=== PATIENT | female | born 1960 | race Caucasian/White ===

== ENCOUNTER 2018-11-02 02:09 | Outpatient (CLI) | payer BC, SELFPAY ==
--- NOTE | 2018-11-07 09:26 | HOLTER_ITS ---
DATE OF DICTATION: November 07, 2018 HOLTER MONITOR REPORT STUDY INDICATION: Arrhythmias. REQUESTING PROVIDER: Benito Dwyer M.D. FINDINGS: The patient was monitored for 2 days and 28 minutes. The baseline rhythm was sinus rhythm. Average heart rate 78 bpm, range 54-117 bpm. 483 PVC's, no VT. 118 PAC's, 10 atrial runs, longest 20 beats, fastest 164 bpm. No pauses greater than 3 seconds. No high-degree heart block. 11 patient events. Five events correlated with PVC's, all other events did not correlate with arrhythmias. FINAL INTERPRETATION: Rare PAC's and bursts of supraventricular tachycardia, asymptomatic. Rare PVC's, at times symptomatic.
== END 2018-11-02 02:29 ==
PROVIDERS: PCP Family Medicine; Visit Provider Family Medicine
DX: I49.9 Cardiac arrhythmia, unspecified (principal); I49.1 Atrial premature depolarization; I47.1 Supraventricular tachycardia
CPT/HCPCS: 93225

== ENCOUNTER 2018-11-04 14:42 | Outpatient (CLI) | payer BC, SELFPAY | END 2018-11-04 15:02 | LOC: NCHCN 14:44 → RT 14:45 | PROVIDERS: PCP Family Medicine; Visit Provider Family Medicine | DX: I49.9 Cardiac arrhythmia, unspecified (principal); I49.1 Atrial premature depolarization; I47.1 Supraventricular tachycardia | CPT/HCPCS: 93226 ==

== ENCOUNTER 2018-11-23 02:13 | Outpatient (CLI) | payer BC, SELFPAY ==
[2018-11-23 10:56] LABS: HGB 16.3 g/dL (12.0-15.5); Mean Corpuscular Hemoglobin 30.6 pg (27.0-33.0); Mean Corpuscular Volume 90.2 fL (80-95); Mean Platelet Volume 10.7 fL (8.0-11.0); Platelet Count 228 x1000/uL (130-400); RBC 5.32 m/cumm (4.00-5.20); RBC Distribution Width 13.3 % (11.7-14.6); White Blood Cell Count 9.36 k/cumm (4.4-10.8)
[2018-11-23 11:21] LABS: ALT 36 U/L (12-78); AST 27 U/L (15-37); Albumin 4.1 g/dL (3.4-5.0); Alkaline Phosphatase 70 U/L (46-116); Anion Gap 7.4 mmol/L (3-11); BUN 14 mg/dL (7-18); Bilirubin, Total 0.6 mg/dL (0.2-1.0); CO2 29.6 mmol/L (21.0-32.0); CREATININE 0.71 mg/dL (0.55-1.02); Calcium 9.7 mg/dL (8.5-10.1); Chloride 103 mmol/L (98-107); Glucose 84 mg/dL (70-100); Magnesium 2.1 mg/dL (1.8-2.4); Potassium 4.4 mmol/L (3.5-5.1); Sodium 140 mmol/L (136-145); TSH (W/Ref FT4) 1.76 uIU/mL (0.358-3.74)
[2018-11-23 11:49] LABS: Cholesterol 212 mg/dL (50-200); HDL Cholesterol 82 mg/dL (40-60); LDL CHOLESTEROL 107 mg/dL (<100); Triglyceride 85 mg/dL (30-150)
== END 2018-11-23 02:33 ==
LOC: LBO 02:13 → LOS 08:42
PROVIDERS: PCP Family Medicine; Visit Provider Family Medicine
DX: I49.9 Cardiac arrhythmia, unspecified (principal); Z00.00 Encounter for general adult medical examination without abnormal findings
CPT/HCPCS: 36415; 80053; 80061; 83721; 85027; 83735; 84443

== ENCOUNTER 2019-01-16 00:15 | Outpatient (CLI) | payer BC, SELFPAY ==
--- NOTE | 2019-01-16 11:00 | DI.MAMMO_ITS ---
SYMPTOM/DIAGNOSIS: SCREENING, Z12.31, ENCOUNTER FOR ANNUAL EXAM,Z00.00 MAMMOGRAMS: Mammograms were interpreted according to the usual protocol including computer analysis with CAD system, tomosynthesis and C view imaging. The breasts are of moderate density with fairly symmetrical distribution of fibroglandular tissue. The patient has had bilateral previous breast biopsies with small biopsy clip in the upper outer quadrant of the left breast. No new mass or clumped microcalcification is seen. No change in comparison with previous examinations including 10/2017. CONCLUSION: No specific evidence of malignancy at this time. Routine screening examinations are suggested at yearly intervals due to the family history of breast carcinoma. Category 1. Breast density, category B. MQSA ASSESSMENT OF FINDINGS: Negative. Category 1. Patient will receive a letter notifying them of these results. BI-RADS category B. There are scattered areas of fibroglandular density.
== END 2019-01-16 00:35 ==
PROVIDERS: PCP Family Medicine; Visit Provider Family Medicine
DX: Z80.3 Family history of malignant neoplasm of breast
CPT/HCPCS: 77063; 77067

== ENCOUNTER 2020-01-16 12:29 | Outpatient (CLI) | payer OTHER, SELFPAY ==
[2020-01-17 12:22] LABS: COVID-19 RT-PCR UVMMC Result Negative (Negative)
== END 2020-01-16 12:49 ==
PROVIDERS: PCP Family Medicine; Visit Provider Family Medicine
DX: Z20.828 Contact with and (suspected) exposure to other viral communicable diseases (principal)
CPT/HCPCS: U0003

== ENCOUNTER 2021-08-18 03:09 | Outpatient (CLI) | payer OTHER, SELFPAY ==
[2021-08-18 10:21] LABS: Source Nasal/Nares
[2021-08-18 19:57] LABS: COVID-19 PCR Negative (Negative)
== END 2021-08-18 03:10 | disposition home or self-care (01) ==
LOC: LBO 03:10
PROVIDERS: PCP Family Medicine; Visit Provider Obstetrics & Gynecology Gynecology
DX: Z20.822 Contact with and (suspected) exposure to COVID-19 (principal); Z01.818 Encounter for other preprocedural examination
CPT/HCPCS: 87635

== ENCOUNTER 2021-08-18 03:48 | Outpatient (CLI) | payer OTHER, SELFPAY ==
[2021-08-18 08:46] LABS: HCT 46.7 % (36.0-46.0); HGB 15.5 g/dL (11.2-15.7); MCH 29.9 pg (27.0-33.0); MCHC 33.2 % (32.0-36.0); MPV 9.7 fL (8.0-11.0); Platelet Count 228 10^3/uL (130-400); RBC 5.19 10^6/uL (3.93-5.22); RDW 12.5 % (11.7-14.6); RDW-SD 41.4 fL; WBC 7.27 10^3/uL (4.4-10.8)
== END 2021-08-18 03:49 | disposition home or self-care (01) ==
LOC: LBO 03:49
PROVIDERS: PCP Family Medicine; Visit Provider Obstetrics & Gynecology Gynecology
DX: N81.11 Cystocele, midline (principal); Z01.818 Encounter for other preprocedural examination; Z01.812 Encounter for preprocedural laboratory examination
CPT/HCPCS: 36415; 85027; 86850; 86900; 86901; 85014; 85018

== ENCOUNTER 2021-08-20 08:03 | Day surgery (SDC) | payer OTHER, SELFPAY ==
--- NOTE | 2021-08-19 14:44 | NUR.NOTE ---
Per pt. labs it was noted that per the order Lytes were supposed to have been drawn with the CBC, Type and screen, and H&H. This was not drawn, Dr. Villavicencio informed, stated we did not have to have Lytes additionally drawn on day of surgery. Nursing Note:
[2021-08-20] VITALS (9 sets, daily range): BP systolic 124–156; BP diastolic 72–87; PULSE 61–69; RESP 14–22; TEMP 36.5–36.8; O2SAT 96–100; BMI 24.6
[2021-08-20] MEDS: Lactated Ringers 1,000 ML 125 ML IV (09:02)
--- NOTE | 2021-08-20 11:40 | ANES.PREOP_ITS ---
General Info Date of Service Date Performed: 08/20/21 Height: 5 ft 1 in Weight: 59.1 kg Body Mass Index (BMI): 24.6 Surgical Procedure: Operation Date: 08/20/21 09:55 Proposed Procedures Side Surgeon p Anterior Repair Geri De Paz MD Meds Allergies and Home Medications Allergies Allergy/AdvReac Type Severity Reaction Status Date / Time erythromycin base Allergy Severe Swelling Unverified 08/20/21 08:29 banana AdvReac Severe heart burn Unverified 08/20/21 08:29 lactose AdvReac Severe Flu like Unverified 08/20/21 08:29 symptoms avocado AdvReac Intermediate stomach Unverified 08/20/21 08:29 upset egg AdvReac Intermediate Flu like Unverified 08/20/21 08:29 symptoms latex AdvReac Intermediate Redness, Unverified 08/20/21 08:29 rash levofloxacin AdvReac Mild Joint pain. Verified 08/20/21 08:29 broccoli AdvReac Severe doesnt Uncoded 08/20/21 08:29 digest Red Sauce AdvReac Intermediate Flu like Uncoded 08/20/21 08:29 symptoms Home Medication Medication Instructions Recorded loratadine [Claritin] 10 mg PO DAILY PRN tab-cap 04/27/13 aspirin 2 tab PO PRN 04/06/14 ibuprofen 2 tab PO PRN PRN 03/28/16 ccbpzawf-zzk-iahj-FA-lutein 1 tab PO DAILY 08/19/21 [Multivitamin Women 50 Plus] Current Visit Medications: Current Medications Generic Name Dose Route Start Last Admin Trade Name Freq PRN Reason Stop Dose Admin Ringer's Solution 1,000 mls @ 125 mls/hr 08/20/21 06:00 08/20/21 09:02 IV 09/08/21 23:59 125 mls/hr INFUSION MARGE Administration IV Miscellaneous Supplies 1 each 08/20/21 06:00 Iv Access IV 09/08/21 23:59 DIRECTED MARGE Sodium Chloride 0 ml 08/20/21 06:00 Normal Saline Flush 10 Ml Syr IV 09/08/21 23:59 PRN PRN Sodium Chloride 0 ml 08/20/21 06:00 Normal Saline 10 Ml Vial IJ 09/08/21 23:59 DIRECTED PRN Sterile Water 0 ml 08/20/21 06:00 Water,Injection,Sterile 10 Ml Vial IJ 09/08/21 23:59 DIRECTED PRN PFSH Active Problems Active Problems: Problem Status Onset Code Preop examination Z01.818 Cystocele Family history of breast cancer in mother Z80.3 Diverticular disease 08/22/13 K57.90 Left flank pain 04/09/16 R10.9 Left ureteral stone 04/21/16 N20.1 Abnormal mammography 08/24/13 R92.8 Polyp of colon 08/22/13 K63.5 Smoker 04/30/14 F17.200 Medical History Medical History Diverticulosis Dyspareunia in female secondary to atrophic vaginal changes. Hx of left flank pain with assoc hydronephrosis. 04/09/16 resolved. Pelvic mass (~03/2016) initially diagnosed as R ovarian mass. at time of laparotomy large degenerating cervical myoma. Nl uterus and adnexa. Pelvic mass (04/09/16) 10x9x5.6cm. Benign fibroid. Tobacco use Medical History Comments:: Sister had some jumpy legs during last surgery. Unsure what it was. Surgical History Surgical History Abdominal hysterectomy (06/18/16) with BSO. Finding of extensive collection of cervical myomas Biopsy of breast 04/06/14; LEFT section x2. Colonoscopy - MAC (08/22/13) Rotator Cuff Repair RIGHT Tobacco Smoking/Tobacco Use Status: Current every day Tobacco Type: cigarettes Smoking cigarettes per day: 8 Years smoked: 50 Alcohol Alcohol Intake: never Substance Use Substance use: Never Substance use type: does not use Prental History History 2 Para Hx # Term Pregnancies 1 Multiple births Hx # Pregnancies 1 Ectopic pregnancies AB induced Hx Number of Living Children AB spontaneous Vital Signs and Lab Results Vital Signs Most Recent Vital Signs in EMR: Most Recent Vital Signs Temp Pulse Resp BP Pulse Ox 36.8 C 69 20 145/87 H 100 08/20/21 08:16 08/20/21 08:16 08/20/21 08:16 08/20/21 08:16 08/20/21 08:16 Lab Results Blood Type / Crossmatch: Patient ABO/Rh O Negative 08/18/21 Antibody Screen NEGATIVE 08/18/21 Complete Blood Count: White Blood Count 7.27 10^3/uL (4.4-10.8) 08/18/21 08:37 08/18/21 Red Blood Count 5.19 10^6/uL (3.93-5.22) 08/18/21 08:37 08/18/21 Hemoglobin 15.5 g/dL (11.2-15.7) 08/18/21 08:37 08/18/21 Hematocrit 46.7 % (36.0-46.0) H 08/18/21 08:37 08/18/21 Platelet Count 228 10^3/uL (130-400) 08/18/21 08:37 08/18/21 Complete Metabolic Panel: No Data to Display Liver Function Panel: No Data to Display Coagulation Panel: No Data to Display Cardiac Panel: No Data to Display Arterial Blood Gas: No Data to Display Venous Blood Gas: No Data to Display Pancreas Panel: No Data to Display Thyroid Panel: No Data to Display Infectious Disease: Coronavirus (COVID-19)(PCR) Negative (Negative) 08/18/21 08:41 08/18/21 Coronavirus 2019 Source Nasal/Nares 08/18/21 08:41 08/18/21 Blood Cultures: No Data to Display Toxicology Panel: No Data to Display Imaging and Studies Imaging and Studies Study information below may be from another EMR and interpreted by another provider. Please see original notes in EMR for more complete details. EKG Summary: Reviewed Stress Test Summary: Stress test from [facility] in 2019 reviewed Anesthesia Assessment and Plan Anesthesia History Personal History: No History of Anesthesia Complications Family History: No Family History of Anesthesia Complications Exercise Tolerance Exercise Tolerance: Metabolic Equivalents>4 Pertinent Negatives Pertinent Negatives: No Symptoms of GERD Cardiac & Pulmonary Exam Cardiac Exam: Normal S1/S2 Heart Sounds (Reports occaisional limited fast heartbeats) Pulmonary Exam: Clear Bilateral Breath Sounds Implantable Cardiac Device Does patient have a Pacemaker or an ICD?: No Airway Exam Known Difficult Airway: No Mallampati Class: 2 Mouth Opening: Normal (> 3cm) Thyromental Distance: Greater than 3 cm Neck Range of Motion: Full ROM Neck Circumference: Normal Teeth Condition: Removable Dentures/Plates Upper and Removable Dentures/Plates Lower ASA Classification ASA Score: ASA 2 Emergency Case?: No NPO Status NPO Status: NPO Clears >2 hours, Solids >8 hours Anesthesia Plan Resuscitation Status: Full Code Anesthesia Technique: General Anesthesia Airway Planned: Natural Airway Monitors Used: Standard Monitors
--- NOTE | 2021-08-20 13:32 | W.PM.DSUDISC ---
Discharge Plan Disposition Patient Disposition: HOME Condition: Fair Discharge Details Attending Provider: Geri De Paz Primary Care Provider: Yesica Payne Home Meds and New Rx's Prescriptions: No Action loratadine [Claritin] 10 MG tablet 10 mg PO DAILY PRN RF: 0 aspirin 325 MG tablet 2 tab PO PRN RF: 0 ibuprofen 200 MG capsule 2 tab PO PRN PRNRF: 0 Multivitamin Women 50 Plus 8 mg iron-400 mcg-300 mcg Tablet 1 tab PO DAILY RF: 0 Discharge Instructions Additional Instructions: You may take Percocet 5/325mg one tablet every 6 hours in addition to ibuprofen 600 mg every 6 hours. You may take Tylenol for pain when you are not taking the Percocet since Percocet has Tylenol in it. You can expect some bloody discharge from your vagina. You may wear a pad do not put any tampons inside the vagina. The bleeding should stop in 2 to 3 days. Try to empty your bladder every 4 hours for the first 24 hours. If you are unable to void please call and ask to speak to the on-call [employer] [employer] provider. Stand Alone Forms: DSU Post Gynecology Surgery Activity:: No lifting over 10 pounds until you see Dr. De Paz in 2 weeks Diet:: As Tolerated Discharge Orders Discharge Orders: Discharge Order (Routine); Ordered 08/20/21 Ordered By: Geri De Paz DS: Diagnosis Discharge Diagnosis (1) Cystocele: Status: Acute (2) History of anterior colporrhaphy: Status: Acute
[2021-08-20] MEDS: Ketorolac 30 MG/ML VIAL IVP (13:54)
[2021-08-20] MEDS: fentaNYL 100 MCG/2 ML VIAL IVP (14:01)
--- NOTE | 2021-08-20 14:31 | ROE_ITS ---
Date of service: 08/20/21 Time of Service: 14:31 Operative Note Operative Note DATE OF PROCEDURE: 08/20/21 PRE-OP DIAGNOSIS: cystocele POST-OP DIAGNOSIS: same PROCEDURE: anterior colporraphy SURGEON: Geri De Paz ASSISTING SURGEON: Ai Gómez ANESTHESIA TYPE: General LMA/ETT Refer to Anesthesia Record ESTIMATED BLOOD LOSS: 10 PATHOLOGY: none sent COMPLICATIONS: None Patient was transported to: PACU Patient's condition: stable Indications: 60yo female with a symptomatic stage 3 cystocele who requests definitive treatment Findings: cystocele that extends to introitus with Valsalva in the doral lithotomy position. Vaginal cuff well suspended. No rectocele. No enterocele. Procedure Description: The patient was taken to the operating room where she was placed in the dorsal supine position and general anesthesia was administered without difficulty. 1 gm of Ancef was administered upon arrival in the OR. She was then placed in the dorsal lithotomy position in yellowfin stirrups in a neurologically neutral position. The patient was then prepped, and draped in the usual sterile fashion. A surgical timeout was performed. A bladder catheter is placed to gravity drainage. A weighted speculum was placed within the vagina, allowing adequate visualization of the anterior vaginal wall. An Allis clamp is placed 1 cm proximal to the urethra along the midline of the anterior vagina and two more Allis clamps on either side of the vaginal cuff. The anterior vaginal was injected with approximately 10 cc of 1% lidocaine with epinephrine. A transverse incision is made between the two Allis clamps on the vaginal cuff. Metzenbaum scissors are then used to dissect the vaginal mucosa off the underlying tissues anteriorly. Once adequate mobility of the vaginal mucosa was achieved, a small vertical incision was made with Metzenbaum scissors in the midline, perpendicular to the initial incision. The scissors were placed beneath the vaginal mucosa advanced with gentle pressure with care taken to spread the overlying mucosa The path of the scissors was incised, extending the vertical incision to the level of the Allis clamp proximal to the urethra. Allis clamps were placed on the mucosal edges to assist in retraction while further dissection of the vaginal mucosa from the underlying tissues was performed bilaterally. Using a combination of blunt technique and Metzenbaum scissors the mucosa was dissected off the entirety of the bladder. Plication of the vaginal muscularis and adventitia was then performed using 0- Vicryl [id number] sutures. with the initial sutures placed laterally in the field of dissection. The 0-Vicryl sutures were tied in the midline effectively plicating the defect. Redundant vaginal mucosa was trimmed with curved Santos scissors. The vaginal incision is closedin a vertical fashion with a running suture of 0 Vicryl. The suture line was inspected noted be hemostatic. Garcia catheter was removed patient was placed in the dorsal supine position, awakened, extubated and transported to recovery area in stable condition. All sponge lap and needle counts correct x2.
--- NOTE | 2021-08-20 14:44 | W.ANESPOSTOP ---
Postoperative Evaluation Date, Time and Location Date Performed: 08/20/21 Time Performed: 14:45 Patient Location: Day Surgery Unit Vital Signs Most Recent Imported Vital Signs: Most Recent Vital Signs Temp Pulse Resp BP Pulse Ox 36.5 C 61 16 136/83 99 08/20/21 14:28 08/20/21 14:28 08/20/21 14:28 08/20/21 14:28 08/20/21 14:28 Pain Score Most Recent Pain Score: Most Recent Pain Score Pain Level 3 08/20/21 14:28 Assessment Mental Status: Awake (Alert & Oriented to Patient Baseline) Airway and Respiratory Function: Patent airway with normal (patient baseline) respiratory exam Cardiovascular Function: Hemodynamically Stable Hydration Status: Adequately Hydrated Nausea & Vomiting: No Nausea or Vomiting Pain: Pain is tolerable per patient (Reported some discomfort from angle of left jaw from my holding of her airway. We discussed the appropriate course of that discomfort. She reports it is much better with her teeth in. ) Peripheral Nerve Block: Patient did not receive a nerve block
== END 2021-08-20 15:40 | disposition home or self-care (01) ==
PROVIDERS: PCP Family Medicine; Visit Provider Obstetrics & Gynecology Gynecology
PROC: (CPT 57260; principal; 2021-08-20 09:45)
DX: N81.11 Cystocele, midline (principal); F17.210 Nicotine dependence, cigarettes, uncomplicated
CPT/HCPCS: 57240; J0690; J1100; J1885; J2001; J2405; J3010

== ENCOUNTER 2021-10-28 12:17 | Emergency (ER) | payer OTHER, SELFPAY ==
--- NOTE | 2021-10-28 12:15 | RT.EKG_ITS ---
APPROVED REPORT Exam: Resting ECG Reason for Exam: dizzy Patient Location: E HR:77 bpm ECG Measurements Heart Rate 77 AXIS MD 139 P 55 QRSd 83 QRS -23 QT 372 T 63 QTc 422 Conclusion Sinus rhythm...normal P axis, V-rate 60- 99 Inferior infarct, old...Q >35mS, II III aVF Anterior infarct, old...Q >40mS, abnormal ST-T, V2-V5. Sinus. No STEMI. I have reviewed and interpreted ECG and agree with software generated interpretation.
[2021-10-28 12:27] VITALS: BP 206/97; PULSE 79; RESP 18; TEMP 36.7; O2SAT 99
--- NOTE | 2021-10-28 13:00 | DI.RAD_ITS ---
Exam(s) XR PORTABLE CHEST AP EXAM: XR PORTABLE CHEST AP CLINICAL HISTORY: syncope. TECHNIQUE: 2D digital imaging was performed. COMPARISON: No exams were available for comparison FINDINGS: Single AP portable view. Heart size is upper normal. The mediastinum is not widened. Left lung is clear. There is a small density in the right cardiophrenic angle, possibly just a vesse l or the IVC shadow. Cannot exclude small cardiophrenic cyst. Recommend nonportable PA and lateral views when clinically possible. IMPRESSION: As above. Recommend nonportable PA and lateral views when clinically possible. DATA REPOSITORY: RADIATION DOSE DELIVERED: All CT scans at this facility use at least one of these dose optimization techniques: automated exposure control; mA and/or kV adjustment per patient size (includes targeted e xams where dose is matched to clinical indication); or iterative reconstruction.
[2021-10-28 13:02] VITALS: BP 191/99; PULSE 72; O2SAT 99
[2021-10-28] MEDS: hydroCHLOROthiazide 25 MG TAB PO (13:27)
[2021-10-28 13:30] LABS: Abs Immature Grans 0.03 10^3/uL (0.0-0.06); Absolute Basophil Count 0.05 10^3/uL (0.0-0.2); Absolute Eosinophil Count 0.45 10^3/uL (0.0-0.7); Absolute Lymphocyte Count 2.57 10^3/uL (1.2-3.4); Absolute Neutrophil Count 4.44 10^3/uL (1.2-6.7); Basophils % 0.6; Eosinophils % 5.6; HCT 45.1 % (36.0-46.0); HGB 14.9 g/dL (11.2-15.7); Immature Grans % 0.4; MCH 29.6 pg (27.0-33.0); MCV 90 fL (80-95); MPV 10.3 fL (8.0-11.0); Monocytes % 6.2; Neutrophils % 55.2; Platelet Count 236 10^3/uL (130-400); RBC 5.04 10^6/uL (3.93-5.22); RDW 12.4 % (11.7-14.6); RDW-SD 40.9 fL; WBC 8.04 10^3/uL (4.4-10.8)
--- NOTE | 2021-10-28 13:41 | W.ED.GENAD ---
Discharge Plan Disposition Patient Disposition: HOME Condition: Stable Discharge Details Clinical Impression: Pre-syncope Primary Care Provider: Yesica Payne ED Provider: Callie Lau Home Meds and New Rx's Prescriptions: Continued hydrochlorothiazide 25 mg tablet 25 mg PO DAILY Qty: 30 2RF nystatin 100,000 unit/gram powder 1 applic topical BID Qty: 30 0RF ciclopirox 8 % solution 1 applic topical QHS Qty: 6.6 3RF loratadine [Claritin] 10 MG tablet 10 mg PO DAILY PRN 0RF aspirin 325 MG tablet 2 tab PO PRN 0RF ibuprofen 200 MG capsule 2 tab PO PRN PRN0RF Multivitamin Women 50 Plus 8 mg iron-400 mcg-300 mcg Tablet 1 tab PO DAILY 0RF Discharge Instructions Instructions: Near Syncope (ED) Additional Instructions: Please follow-up with your primary care physician Recommend outpatient echocardiogram of your heart Continue to take your hydrochlorothiazide Wear your Holter monitor Return earlier should you have new or worsening complaints Referrals: Yesica Payne MD [Primary Care Provider] - Discharge Data Discharge Date/Time-TO BE ENTERED AT DEPARTURE: 10/28/21 15:57 Medical Decision Making Patient's diagnostic labs are reassuring EKG does not show acute abnormality and she was observed on telemetry for an extended period of time without dysrhythmia [place] syndope rule indicates patient is low risk for discharge home She is placed on a Holter monitor She is discharged home to the care of her friend in stable condition Her orthostatics are negative, her EKG and 2 troponins are negative for acute abnormality She is encouraged to follow-up with her PCP tomorrow and to return earlier should she have new or worsening complaints 1650: Joey Luevano PA-C My name populated on this chart in error. This patient was seen by my colleague LISA Lau and I had no interaction with the patient or involvement in her medical care. Medical Records Medical records reviewed: Yes I reviewed the patient's medical records. Lab Data Lab results reviewed: Yes I reviewed the patient's lab results. ECG Data Prior ECG tracings: available for review HPI General Date/Time Provider Initiated Documentation: 10/28/21 12:54. HPI Narrative: This 60-year-old female presents with a report of presyncope. She states she was standing and when she had tunnel vision like she might pass out. She states this lasted for several seconds she took some deep breaths and it resolved only to recur again several seconds later. She denies complete loss of consciousness. She has some palpitations after the event. She denies any chest pain. She denies any fever or chills. She felt well prior to onset. She has been standing for an extended period of time. She was recently started on hydrochlorothiazide 3 weeks ago. She forgot to take her dose today reportedly. She denies any calf pain or swelling. She is 8 weeks status post bladder sling. Related Data Home Medications Medication Instructions Recorded Confirmed loratadine 10 mg tablet (Claritin) 10 mg PO DAILY PRN tab-cap 04/27/13 10/28/21 aspirin 325 mg tablet 2 tab PO PRN 04/06/14 10/28/21 ibuprofen 200 mg capsule 2 tab PO PRN PRN 03/28/16 10/28/21 multivit with 1 tab PO DAILY 08/19/21 10/28/21 edxeshhj-vgtn-RG-lutein 8 mg iron-400 mcg-300 mcg tablet (Multivitamin Women 50 Plus) ciclopirox 8 % topical solution 1 applic TOPICAL QHS #6.6 ml 10/08/21 10/28/21 hydrochlorothiazide 25 mg tablet 25 mg PO DAILY #30 tab 10/08/21 10/28/21 nystatin 100,000 unit/gram topical 1 applic TOPICAL BID #30 g 10/08/21 10/28/21 powder Previous Rx's Medication Instructions Recorded ciclopirox 8 % topical solution 1 applic TOPICAL QHS #6.6 ml 10/08/21 hydrochlorothiazide 25 mg tablet 25 mg PO DAILY #30 tab 10/08/21 nystatin 100,000 unit/gram topical 1 applic TOPICAL BID #30 g 10/08/21 powder Allergies Allergy/AdvReac Type Severity Reaction Status Date / Time erythromycin base Allergy Severe Swelling Unverified 10/28/21 12:31 banana AdvReac Severe heart burn Unverified 10/28/21 12:31 lactose AdvReac Severe Flu like Unverified 10/28/21 12:31 symptoms avocado AdvReac Intermediate stomach Unverified 10/28/21 12:31 upset egg AdvReac Intermediate Flu like Unverified 10/28/21 12:31 symptoms latex AdvReac Intermediate Redness, Unverified 10/28/21 12:31 rash levofloxacin AdvReac Mild Joint pain. Verified 10/28/21 12:31 broccoli AdvReac Severe doesnt Uncoded 10/28/21 12:31 digest Red Sauce AdvReac Intermediate Flu like Uncoded 10/28/21 12:31 symptoms General Stated Complaint: Dizzy/Sync TERRY: 3 Review of Systems All systems reviewed & are unremarkable except as noted in HPI and below PFSH All Active Problems (Updated 10/28/21 @ 15:31 by LISA Harding) Pre-syncope (Acute) Family history of aneurysm of blood vessel of brain (Acute) Essential hypertension (Acute) Tobacco use (Acute) Medical History (Updated 10/28/21 @ 15:31 by LISA Harding) Cystocele Anterior colporrhaphy to 2021. Diverticulosis Dyspareunia in female secondary to atrophic vaginal changes. Family history of breast cancer in mother Pelvic mass (~03/2016) initially diagnosed as R ovarian mass. at time of laparotomy large degenerating cervical myoma. Nl uterus and adnexa. Surgical History (Updated 10/08/21 @ 15:22 by Yesica Payne MD) History of anterior colporrhaphy (08/2021) S/P SHARLA-BSO (2015) Finding of extensive collection of cervical myomas Status post breast biopsy (~2013) left Status post rotator cuff repair right Family History (Updated 10/10/21 @ 11:18 by Quiana López) Mother , 78 Breast cancer Heart disease Stroke Lung cancer Cancer of spine Father , 49 Cancer Maternal Grandfather , 68 Alcohol abuse Heart disease Paternal Grandfather , 80 Alcohol abuse Heart disease Maternal Grandmother , 30 Diabetes Alcohol abuse Paternal Grandmother , 98 Heart disease Sister Depression Sister Alcohol abuse Depression Substance abuse Brother No problems noted. Son Depression Daughter No problems noted. 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 Pets and animals: Yes Pets and animals: dog(s), horse(s) and other Details: chickens Sexually active: No Current gender identity: female What is your relationship status?: How often do you talk on the phone with friends or family?: three or more times per week How often do you get together with friends or relatives?: never How often do you attend hinduism or restorationism services?: 1-3 times per year Do you belong to any clubs or organized social groups?: no Panel score (0-1 are the most socially isolated patients): 2 Duration: < 15 minutes/day Chaparrita/Tenriism: Sabianist Special chaparrita needs: No Seatbelt use: always Helmet use: Yes Helmet use: sometimes Drive intox or ride w/intox public transit trolley driver: No Do you feel safe at home: Yes Do you feel safe in your relationship?: Yes Additional Social history: Daughter Gloria with ADHD, adopted. Enjoys gardening, working. History History 2 Para Hx # Term Pregnancies 1 Multiple births Hx # Pregnancies 1 Ectopic pregnancies AB induced Hx Number of Living Children AB spontaneous Exam Const General: cooperative, comfortable and no acute distress Orientation: alert and oriented x3 Eyes Pupils: PERRL EOM: EOM intact bilaterally Neck Other: no carotid bruit, no midline tenderness Resp Effort & Inspection: normal respiratory effort Auscultation: clear to auscultation bilaterally Cardio Rate: regular rate Rhythm: regular rhythm GI Other: non-tender abdominal exam, no abdominal bruit or pulsatile mass Skin General skin exam: no rashes or lesions noted Lesions: no lesions Neuro General: patient alert and patient oriented x3 Cranial Nerves: CN's II-XI intact bilaterally and tongue midline Cognition: normal cognition Speech: speech normal Gait: normal gait Motor: strength 5/5 throughout Course Vital Signs Vital signs: Vital Signs Temperature 36.7 C 10/28/21 12:27 Pulse 79 10/28/21 12:27 Respiratory Rate 18 10/28/21 12:27 Blood Pressure 206/97 H 10/28/21 12:27 Pulse Oximetry 99 04/19/22 12:27 Temperature 36.7 C 04/19/22 12:27 Temperature Source Temporal Artery Scan 10/28/21 12:27 Pulse 72 10/28/21 13:02 Respiratory Rate 18 10/28/21 12:27 Respiratory Effort 10/28/21 12:42 Respiratory Depth Normal 10/28/21 12:42 Respiratory Pattern Normal 10/28/21 12:42 Blood Pressure 191/99 H 10/28/21 13:02 Blood Pressure Position Sitting 10/28/21 12:27 Pulse Oximetry 99 10/28/21 13:02 Oxygen Delivery Method Room Air 10/28/21 12:27 Oxygen Flow Rate 0 10/28/21 12:27 Lab/Test Results Lab/Test Results: Laboratory Tests Range/Units 10/28/21 13:11 WBC (4.4-10.8) 10^3/uL 8.04 RBC (3.93-5.22) 10^6/uL 5.04 Hgb (11.2-15.7) g/dL 14.9 Hct (36.0-46.0) % 45.1 MCV (80-95) fL 90 MCH (27.0-33.0) pg 29.6 MCHC (32.0-36.0) % 33.0 RDW (11.7-14.6) % 12.4 Plt Count (130-400) 10^3/uL 236 MPV (8.0-11.0) fL 10.3 Immature Gran % 0.4 Neutrophils % 55.2 Lymphocytes % 32.0 Monocytes % 6.2 Eosinophils % 5.6 Basophils % 0.6 Nucleated RBC % (0.0-0.3) % 0.0 Absolute Neutrophils (1.2-6.7) 10^3/uL 4.44 Absolute Lymphocytes (1.2-3.4) 10^3/uL 2.57 Absolute Monocytes (0.1-0.8) 10^3/uL 0.50 Absolute Eosinophils (0.0-0.7) 10^3/uL 0.45 Absolute Basophils (0.0-0.2) 10^3/uL 0.05
[2021-10-28 13:45] LABS: ALT 28 U/L (14-59); AST 24 U/L (15-37); Albumin 3.7 g/dL (3.4-5.0); Alkaline Phosphatase 81 U/L (46-116); Anion Gap 6.9 mmol/L (3-11); BUN 9 mg/dL (7-18); Bilirubin, Total 0.3 mg/dL (0.2-1.0); CO2 28.1 mmol/L (21.0-32.0); CREATININE 0.8 mg/dL (0.55-1.02); Calcium 8.9 mg/dL (8.5-10.1); Chloride 105 mmol/L (98-107); Glucose 95 mg/dL (74-106); Magnesium 2.1 mg/dL (1.8-2.5); Potassium 3.6 mmol/L (3.5-5.1); Sodium 140 mmol/L (136-145); Total Protein 6.9 g/dL (6.4-8.2); Troponin I < 50 ng/L (<or=60)
[2021-10-28 13:49] LABS: Bilirubin Negative (Negative); Blood Negative (Negative); Clarity Clear (Clear); Glucose Negative (Negative); Ketones Negative (Negative); Leukocyte Esterase Negative (Negative); Nitrite Negative (Negative); Specific Gravity 1.015 (1.005-1.025); Urobilinogen 0.2 EU/dL (Up TO 0.2)
[2021-10-28 13:54] VITALS: BP 169/95; BP 172/88; BP 183/95
[2021-10-28 14:02] LABS: D-Dimer 471 ng/mlFEU (<500)
--- NOTE | 2021-10-28 14:15 | DI.RAD_ITS ---
Exam(s) XR CHEST 2V PA LATERAL EXAM: XR CHEST 2V PA LATERAL CLINICAL HISTORY: question abnl portable. TECHNIQUE: 2D digital imaging was performed. COMPARISON: CR XR PORTABLE CHEST AP from 10/28/2021 FINDINGS: 2 views: Heart size is normal. The mediastinum is not widened. Left lung is clear. Small density in the right cardiophrenic angle persists on these non portable im ages. Possibly represents extension of right pericardiac fat pad or small pericardial cyst. No othe r findings and no pleural effusions IMPRESSION: Right cardio phrenic angle finding as described above. Probably represents either extension of the p ericardiac fat pad or a pericardial cyst at this location. DATA REPOSITORY: RADIATION DOSE DELIVERED:
--- NOTE | 2021-10-28 14:45 | RT.EKG_ITS ---
APPROVED REPORT Exam: Resting ECG Reason for Exam: syncope Patient Location: E HR:63 bpm ECG Measurements Heart Rate 63 AXIS DE 144 P 46 QRSd 80 QRS -16 QT 412 T 52 QTc 423 Conclusion Sinus rhythm...normal P axis, V-rate 60- 99 Inferior infarct, old...Q >35mS, II III aVF Consider anteroseptal infarct...Q >30mS, dimin R, V1-V2. Sinus. No STEMI. I have reviewed and interpreted ECG and agree with software generated interpretation.
[2021-10-28 15:07] VITALS: BP 161/88; PULSE 64; RESP 17; TEMP 37; O2SAT 99
[2021-10-28 15:25] LABS: Troponin I < 50 ng/L (<or=60)
[2021-10-28 16:20] VITALS: BP 162/68; PULSE 72; RESP 16; TEMP 36.6; O2SAT 99
== END 2021-10-28 15:57 | disposition home or self-care (01) ==
PROVIDERS: Emergency Provider Physician Assistant; PCP Family Medicine
DX: R55 Syncope and collapse
CPT/HCPCS: 36415; 80053; 93005; 99284; 71045; 71046; 81003; 83735; 84484; 85025; 85379; 93010

== ENCOUNTER 2021-10-28 16:13 | Outpatient (RCR) | payer OTHER, SELFPAY ==
--- NOTE | 2021-10-28 16:15 | HOLTER_ITS ---
APPROVED REPORT Conclusion This is a 48-hour Holter monitor ordered for near syncope Predominant rhythm was sinus with an average heart rate of 78. Minimum was 53, maximum 126 There were very rare ventricular ectopic beats There were very rare atrial premature beats. A total of 11 self-limited atrial runs occurred. The l ongest of these was 17 beats in duration There was no atrial fibrillation, no high-grade AV block, no pauses greater than 3 seconds No patient symptoms were reported
== END 2021-11-08 23:59 | disposition home or self-care (01) ==
LOC: RT 16:13
PROVIDERS: PCP Family Medicine; Visit Provider Physician Assistant
DX: R55 Syncope and collapse (principal); I49.1 Atrial premature depolarization
CPT/HCPCS: 93225; 93226

== ENCOUNTER → 2021-12-24 01:40 | Outpatient (CLI) | payer OTHER, SELFPAY ==
--- NOTE | 2021-12-24 07:30 | DI.US_ITS ---
APPROVED REPORT EXAM: Comprehensive 2D, Doppler, and color-flow Echocardiogram Patient Location: Out-Patient Barrel Lathe Operator Outside: Maria E Carreno RDCS (AE) Indications: Pre Syncope Other Information Study Quality: Adequate Conclusion Normal left ventricular size and systolic function. Estimated ejection fraction is 61%. Wall motion is normal Normal right ventricular size and systolic function Both atria are normal in size There is no structural or hemodynamically significant valvular disease Estimated right ventricular systolic pressure is normal at 20 mmHg Wall motion Left Ventricle The left ventricle is normal size. The left ventricular systolic function is normal. The left ventric ular ejection fraction is within the normal range. There is normal left ventricular wall thickness. T here is normal LV segmental wall motion. There is no ventricular septal defect visualized. LVEF is 61 %. Right Ventricle The right ventricle is normal size. The right ventricular systolic function is normal. The RVSP is 20 .4mmHg. Atria The left atrium size is normal. The right atrium size is normal. The interatrial septum is intact wit h no evidence for an atrial septal defect. Aortic Valve The aortic valve is normal in structure. Aortic valve is trileaflet. There is no aortic valvular sten osis. No aortic regurgitation is present. Mitral Valve The mitral valve is normal in structure. No evidence of mitral valve stenosis. Trace mitral regurgita tion. Tricuspid Valve The tricuspid valve is normal in structure. There is no tricuspid valve stenosis. Mild tricuspid regu rgitation. Pulmonic Valve The pulmonary valve is normal in structure. There is no pulmonic valvular regurgitation. There is no pulmonic valve vegetations. Great Vessels The aortic root is normal in size. Ascending aorta is normal in caliber. Aortic arch is normal in dewey iber. IVC is normal in size and collapses >50% with inspiration. Pericardium There is no pericardial effusion. 2D Dimensions IVSD d PLAX 1.03 cm F: 0.6-1.0 LV Vol A2C d MOD 63.7 mL LVPW d PLAX 1.02 cm F: 0.6 - 1.0 LV Vol A4C d MOD 60.4 mL LVID d PLAX 4.35 cm F: 3.8 - 5.2 LA vol/ BSA A2C s A-L 23.2 mL/m2 LVDs 2.95 cm F: 2.2 - 3.5 LA vol/ BSA A4C s A-L 16.8 mL/m2 Ao Root d 3.14 cm F: 2.7 - 3.3 LA Vol/ BSA Biplane s A-L 19.8 mL/m2 RA Area A4C 8.48 cm2 LA Area A4C s MOD 11.24 cm2 RA Vol/ BSA A4C s A-L 11.2 mL/m2 LA Area A2C s MOD 13.32 cm2 Ao Asc Diam d 3.28 cm F: 2.3 - 3.1 LV EF A4C MOD 61.6 % LV EF Teichholz 59.7 % LV EF A2C MOD 60.9 % LVEF (Ramirez's) 60.89 % F: 54 - 74 LV EF Biplane MOD 60.9 % LV Volume 51.87 mL F: 46 - 106 SV 38.52 mL LV Volume Index 33.25 mL/m2 F: 29 - 61 SV Index 24.65 mL/m2 LV Vol Biplane MOD 63.3 mL FS 31.55 % M-Mode TAPSE 2.67 cm (M/F) >1.7 LV Diastology MV E' medial 0.079 (>0.07 m/s) E/A Ratio 0.8 LV E/e MED 7.30 (<14) MV E Vmax 0.58 (0.4-1.3 m/s) MV E' lateral 0.089 (>0.1 m/s) MV A Vmax 0.70 (0.4-1.3 m/s) LV E/e LAT 6.50 (<14) MV E/A Ratio 0.82 MV E/E' medial 7.32 MV E/E' lateral 6.51 Aortic Valve LVOT Area 3.21 cm2 AoV Area Vmax 3.39 cm2 LVOT Vmax 1.23 m/s AoV Area/ BSA (Vmax) 2.17 cm2/m2 LVOT Mean Ronan. 0.82 m/s MARY KATE Mean Ronan. 2.77 cm2 LVOT Peak Grad 6.0 mmHg MARY KATE Mean Ronan. Index 1.77 cm2/m2 LVOT Mean Grad 3.0 mmHg LVOT VTI 0.242 m LVOT Diam s 2.00 cm AoV Vmax 1.16 m/s Velocity Ratio 1.06 AoV Mean Ronan. 0.96 m/s AoV Peak Grad 5.4 mmHg LVOT SV 77.80 mL AoV Mean Grad 3.8 mmHg AoV VTI 0.293 m AoV Area VTI 2.66 cm2 AoV Area/ BSA (VTI) 1.70 cm/m2 Mitral Valve MV DT 367 (160-240 msec) MV PHT 106 msec MV Area PHT 2.07 cm2 MV VTI 0.284 m MV Area VTI 2.74 (4.0-6.0 cm2) Pulmonary Valve PV Vmax 0.86 (0.5-1.5 m/s) RVOT Peak Gr. 1.55 mmHg PV Peak Grad 3.0 mmHg RVOT Mean Gr. 0.85 mmHg PV Mean Grad 2.0 mmHg RVOT VTI 0.151 m PV VTI 0.216 m RVOT Vmax 0.62 m/s Tricuspid Valve TR Peak Grad 17.4 mmHg TR Vmax 2.09 m/s RA Pressure 3.00 mmHg RVSP (TR) 20.4 mmHg
== END ==
PROVIDERS: PCP Family Medicine; Visit Provider Family Medicine
DX: R55 Syncope and collapse (principal)
CPT/HCPCS: 93306

== ENCOUNTER 2022-01-14 02:21 | Outpatient (CLI) | payer OTHER, SELFPAY | END 2022-01-14 02:41 | PROVIDERS: PCP Family Medicine; Visit Provider Family Medicine ==

== ENCOUNTER 2022-08-12 10:15 | Outpatient (CLI) | payer OTHER, SELFPAY ==
[2022-08-12 13:00] LABS: Anion Gap 3.8 mmol/L (3-11); BUN 15 mg/dL (7-18); CO2 35.2 mmol/L (21.0-32.0); CREATININE 0.7 mg/dL (0.55-1.02); Calcium 9.6 mg/dL (8.5-10.1); Calculated LDL 115 mg/dL (<100); Chloride 102 mmol/L (98-107); Cholesterol 219 mg/dL (<200); Estimated GFR 97.72 (mL/min/1.73m2); Glucose 74 mg/dL (74-106); HDL Cholesterol 65 mg/dL (40-60); Potassium 3.2 mmol/L (3.5-5.1); Sodium 141 mmol/L (136-145); Triglyceride 197 mg/dL (<150)
== END 2022-08-12 10:16 | disposition home or self-care (01) ==
LOC: LOS 10:15
PROVIDERS: PCP Family Medicine; Referring Provider Family Medicine; Visit Provider Family Medicine
DX: I10 Essential (primary) hypertension (principal); Z00.00 Encounter for general adult medical examination without abnormal findings
CPT/HCPCS: 36415; 80048; 80061

== ENCOUNTER 2022-08-25 01:12 | Outpatient (CLI) | payer OTHER, SELFPAY ==
--- NOTE | 2022-08-25 07:30 | DI.MAMMO_ITS ---
Exam(s) MAMMO SCREENING EXAM: MAMMO SCREENING CLINICAL HISTORY: screening,z12.39. TECHNIQUE: Bilateral full field digital CC and MLO mammographic images were obtained with 3D tomosyn thesis and utilizing computer aided detection (CAD). COMPARISON: Prior mammograms were reviewed. FINDINGS: There has been no significant change in the appearance and distribution of the fibroglandular tissue. There are no CAD designations. No new significant radiograph findings in the right breast. Architectural distortion anteriorly from prior surgery is unchanged. There are no new findings in the immediate vicinity of the biopsy marker clip in the left breast. However, there is an asymmetric density located laterally in the breast approximately 8 cm in from th e nipple on the CC view and measuring approximately 5 x 4 millimeters. On the left MLO view this is located 7 cm in from the nipple. There are no malignant-appearing microcalcification groups in this region or elsewhere in either [address] There is no significant architectural distortion nor skin thickening-retraction. IMPRESSION: 1. No radiographic evidence of malignancy in the right breast. 2. Asymmetric density-possible nodule in the left breast as described above. Spot compression views and ultrasound recommended. BI-RADS Category 0 - Assessment Incomplete: Need additional imaging evaluation Breast Density - Category C - Heterogeneously dense Breast density Category C or D implies that the patient has dense breast tissue. Dense breast tissue can make it harder to find cancer on a mammogram. Dense breast tissue is also associated with an incr eased risk of breast cancer. This information about the result of the mammogram report was provided to the patient to raise their awareness. Use this report when you speak with the patient about their risks for breast cancer, which includes their family history. At that time, you may recommend additional screening tests (Ultrasoun d or MRI) as these tests may add significant information. A negative radiographic report should not delay biopsy if a dominant or clinically suspicious mass is present. Up to ten percent of cancers are not identified on mammography. A negative report may reinforce clinical impression. Adenosis and dense breasts may obscure an underlying neoplasm. False positive reports average 6 to 10%. Patient will receive a letter notifying them of these results.
== END 2022-08-25 01:32 ==
LOC: DI 01:12
PROVIDERS: PCP Family Medicine; Visit Provider Family Medicine
DX: Z12.31 Encounter for screening mammogram for malignant neoplasm of breast (principal); R92.8 Other abnormal and inconclusive findings on diagnostic imaging of breast
CPT/HCPCS: 77063; 77067

== ENCOUNTER 2022-08-31 01:45 | Outpatient (CLI) | payer OTHER, SELFPAY ==
--- NOTE | 2022-08-31 10:05 | DI.US_ITS ---
Exam(s) MG MAMMO SCREEN CALL BACK UNI US BREAST LT LIMITED EXAM: MG MAMMO SCREEN CALL BACK UNI CLINICAL HISTORY: 5 X 4 MM ASYMMETRIC DENSITY 8 CM FROM NIPPLE ON CC VIEW, 7 CM ON MLO, LT BR. TECHNIQUE: Craniocaudal and mediolateral oblique spot compression digital Mammography views of the l eftbreast with Tomosynthesis and left breast ultrasound. COMPARISON: MG SCREENING ERIKA MAMMO W/CAD DIGI from 08/14/2013 MG DIAGNOSTIC BILAT MAMMO W/CAD from 08/24/2013 MG Screening Bilat Mammo from 10/21/2017 MG MG mammo screening from 01/16/2019 MG MG MAMMO SCREENING from 08/25/2022 FINDINGS: Mammography/Tomosynthesis: Masses/Architectural Distortion: Spot compression views show decreased prominence of area nodularity. Microcalcifictions: No suspicious pleomorphic-type are seen. Skin Thickening/Nipple Retraction: None. Left breast US: Echotexture: Normal appearance of the glandular tissue. Shadowing: No suspicious foci. Cyst: None. Solid lesions: None seen. Ductal dilation: None. IMPRESSION: 1. No evidence of malignancy is noted. 2. Six-month follow-up left mammogram recommended. 3. The findings were discussed with the patient on the date of the examination. BI-RADS Category 3 - 6 month - Probably Benign Finding: Recommend follow-up mammography in 6 months Breast Density - Category B - Scattered areas of fibroglandular density A negative radiographic report should not delay biopsy if a dominant or clinically suspicious mass is present. Up to ten percent of cancers are not identified on mammography. A negative report may reinforce clinical impression. Adenosis and dense breasts may obscure an underlying neoplasm. False positive reports average 6 to 10%. Patient will receive a letter notifying them of these results.
== END 2022-08-31 02:05 ==
PROVIDERS: PCP Family Medicine; Visit Provider Family Medicine
DX: Z12.31 Encounter for screening mammogram for malignant neoplasm of breast (principal)
CPT/HCPCS: 76642; 77063; 77067

== ENCOUNTER 2023-02-01 03:30 | Outpatient (CLI) | payer OTHER, SELFPAY ==
--- NOTE | 2023-02-01 08:00 | DI.MAMMO_ITS ---
Exam(s) MAMMO DIAGNOSTIC UNI EXAM: MAMMO DIAGNOSTIC UNI CLINICAL HISTORY: lt breast f/u, abnl mammo, 6 mo fu,r92.8. TECHNIQUE: Craniocaudal and mediolateral oblique Full Field Digital Mammography views of the left br east with Computer Aided Diagnosis followed by Tomosynthesis. COMPARISON: Comparison is made with prior examinations. FINDINGS: Mammography/Tomosynthesis: Masses/Architectural Distortion: None seen. There is a biopsy clip again seen in the left breast. Microcalcifictions: No suspicious pleomorphic-type are seen. Skin Thickening/Nipple Retraction: None. IMPRESSION: 1. No evidence of malignancy is noted. 2. Unless there is more urgent need, follow-up screening mammography is recommended, as per [employer] guidelines. 3. The findings were discussed with the patient on the date of the examination. BI-RADS Category 1 - Negative Breast Density - Category B - Scattered areas of fibroglandular density Breast density Category C or D implies that the patient has dense breast tissue. Dense breast tissue can make it harder to find cancer on a mammogram. Dense breast tissue is also associated with an incr eased risk of breast cancer. This information about the result of the mammogram report was provided to the patient to raise their awareness. Use this report when you speak with the patient about their risks for breast cancer, which includes their family history. At that time, you may recommend additional screening tests (Ultrasoun d or MRI) as these tests may add significant information. A negative radiographic report should not delay biopsy if a dominant or clinically suspicious mass is present. Up to ten percent of cancers are not identified on mammography. A negative report may reinforce clinical impression. Adenosis and dense breasts may obscure an underlying neoplasm. False positive reports average 6 to 10%. Patient will receive a letter notifying them of these results.
== END 2023-02-01 03:50 ==
LOC: DI 03:31
PROVIDERS: PCP Nurse Practitioner Family; Visit Provider Family Medicine
DX: R92.8 Other abnormal and inconclusive findings on diagnostic imaging of breast (principal); Z12.31 Encounter for screening mammogram for malignant neoplasm of breast
CPT/HCPCS: 77061; 77065; G0279

== ENCOUNTER 2023-02-02 13:46 | Emergency (ER) | payer OTHER, SELFPAY ==
[2023-02-02 14:13] VITALS: BP 144/86; PULSE 79; RESP 20; TEMP 37; O2SAT 99
--- NOTE | 2023-02-02 15:15 | DI.CT_ITS ---
Exam(s) CT ABDOMEN PELVIS W EXAM: CT ABDOMEN PELVIS W CLINICAL HISTORY: lower abd pain, hx hysterect and prolaps bladder TECHNIQUE: Imaging Protocol: Axial computed tomography images with coronal and sagittal reformatted images were created and reviewed CONTRAST MATERIAL: Intravenous: Omnipaque 350 Contrast volume:100 mL Oral: No COMPARISON: CT ABD PELVIS WITH CONTRAST from 04/07/2016 FINDINGS: ABDOMEN: Lung Bases: Calcified granuloma in the left lower lobe. There are 2 stable less than 4 mm nodules in the right lower lobe. No follow-up is recommended. Liver: There is a simple cyst again seen in the left lobe of the liver. There is a stable area of de creased attenuation adjacent to the gallbladder fossa. This is unchanged dating back to 2016. No ne w hepatic lesions are seen. Portal, Superior Mesenteric, and Splenic Veins: Unremarkable. Gallbladder and Biliary Tract: No radiodense calculus or dilation. Pancreas: Normal density, no abnormal calcifications or inflammatory process. Spleen: Normal. Adrenals: No masses seen. Kidneys: Normal size, contour and axis. No radiodense stones or obstructive uropathy. No masses seen. Abdominal Aorta: Abdominal portion non-dilated. Bowel: There is diverticulosis in the colon. There is bowel wall thickening and pericolonic inflamma tion seen in the proximal sigmoid colon consistent with acute diverticulitis. Appendix is unremarkab le. There is no evidence of bowel obstruction. Peritoneal Cavity: No ascites, collection or mesenteric inflammatory response. No free air. Lymph Nodes: Within normal limits. Bones: Within normal limits for the patient's age. Soft Tissues: Unremarkable. PELVIS: Bladder: Symmetric distention, no gross wall thickening. Reproductive Organs: Status post hysterectomy. Lymph Nodes: Within normal limits. Bones: Within normal limits for the patient's age. IMPRESSION: 1. Findings of acute sigmoid diverticulitis. No abscess or free air. 2. Stable hepatic lesions. 3. Findings were discussed with Jazzy Piedra at 5:20 p.m. on 02/02/2023. RADIATION DOSE DELIVERED: 642.51mGy.cm Total DLP DATA REPOSITORY: All CT scans at this facility are submitted to the National Radiology Data Registry (NRDR) Dose Index Registry (DIR) with the [employer] ([employer]). RADIATION OPTIMIZATION: All CT scans at this facility use at least one of these dose optimization te chniques: automated exposure control; mA and/or kV adjustment per patient size (includes targeted exa ms where dose is matched to clinical indication); or iterative reconstruction.
--- NOTE | 2023-02-02 15:24 | ED.GENADUL_ITS ---
Discharge Plan Disposition Patient Disposition: Home Condition: Stable Discharge Details Clinical Impression: Diverticulitis Primary Care Provider: Sam Bejarano ED Provider: Eliezer Mathews Home Meds and New Rx's Prescriptions: New amoxicillin-pot clavulanate 875-125 mg tablet 1 tab PO BID 10 Days Qty: 20 0RF No Action ciclopirox 8 % solution 1 applic topical QHS Qty: 6.6 3RF lisinopril 20 mg tablet 20 mg PO DAILY Qty: 90 0RF loratadine [Claritin] 10 MG tablet 10 mg PO DAILY PRN aspirin 325 MG tablet 2 tab PO PRN ibuprofen 200 MG capsule 2 tab PO PRN PRN Multivitamin Women 50 Plus 8 mg iron-400 mcg-300 mcg Tablet 1 tab PO DAILY Discharge Instructions Instructions: Diverticulitis (ED) Additional Instructions: Please take medications as prescribed. Return to the emergency department for any worsening Medical Decision Making 62-year-old female history of hysterectomy, bladder prolapse status postrepair presents with suprapubic and lower abdominal discomfort over the last day associate with nausea. Patient is hemodynamically stable afebrile nontoxic nonperitoneal. Consider UTI versus diverticulitis versus colitis versus kidney stone versus must recurrent vesicular prolapse versus must consider appendicitis versus constipation versus gas. Screening labs imaging antiemetics fluids close reassessment 17: 59 evidence of diverticulitis without evidence of abscess or free air, patient resting comfortably nonperitoneal; will start on Augmentin. Home care instruction return precautions HPI General Date/Time Provider Initiated Documentation: 02/02/23 14:27 . HPI Narrative: 62-year-old female history of hysterectomy, bladder prolapse status post repair, presents with lower abdominal/suprapubic discomfort over the past day associated with slight nausea no vomiting. Related Data Home Medications Medication Instructions Recorded Confirmed loratadine 10 mg tablet (Claritin) 10 mg PO DAILY PRN 04/27/13 02/02/23 aspirin 325 mg tablet 2 tab PO PRN 04/06/14 02/02/23 ibuprofen 200 mg capsule 2 tab PO PRN PRN 03/28/16 02/02/23 multivit with 1 tab PO DAILY 08/19/21 02/02/23 pzqufaic-ahcw-BD-lutein 8 mg iron-400 mcg-300 mcg tablet (Multivitamin Women 50 Plus) ciclopirox 8 % topical solution 1 applic topical QHS #6.6 mL 10/08/21 02/02/23 lisinopril 20 mg tablet 20 mg PO DAILY #90 tabs 12/28/22 02/02/23 amoxicillin 875 mg-potassium 1 tab PO BID 10 days #20 tabs 02/02/23 clavulanate 125 mg tablet Previous Rx's Medication Instructions Recorded ciclopirox 8 % topical solution 1 applic topical QHS #6.6 mL 10/08/21 lisinopril 20 mg tablet 20 mg PO DAILY #90 tabs 12/28/22 amoxicillin 875 mg-potassium 1 tab PO BID 10 days #20 tabs 02/02/23 clavulanate 125 mg tablet Allergies Allergy/AdvReac Type Severity Reaction Status Date / Time erythromycin base Allergy Severe Swelling Unverified 02/02/23 14:17 banana AdvReac Severe heart burn Unverified 02/02/23 14:17 lactose AdvReac Severe Flu like Unverified 02/02/23 14:17 symptoms avocado AdvReac Intermediate stomach Unverified 02/02/23 14:17 upset egg AdvReac Intermediate Flu like Unverified 02/02/23 14:17 symptoms latex AdvReac Intermediate Redness, Unverified 02/02/23 14:17 rash levofloxacin AdvReac Mild Joint pain. Verified 02/02/23 14:17 broccoli AdvReac Severe doesnt Uncoded 02/02/23 14:17 digest Red Sauce AdvReac Intermediate Flu like Uncoded 02/02/23 14:17 symptoms General Stated Complaint: Abd Prob TERRY: 3 Review of Systems Narrative: Review of Systems Constitutional: negative Eyes: negative ENT: negative Cardiovascular: negative Respiratory: negative Gastrointestinal: Abdominal pain : negative Musculoskeletal: negative Skin: negative Neurologic: negative Psych: negative PFSH All Active Problems (Updated 02/02/23 @ 18:02 by Eliezer Mathews MD) Essential hypertension (Chronic) Family history of aneurysm of blood vessel of brain (Chronic) Strain of left rhomboid muscle (Acute) Abdominal pain (Acute) Continuous severe abdominal pain (Acute) Chills (Acute) Diverticulitis (Chronic) Medical History Cystocele Anterior colporrhaphy to 2021. Diverticulosis Dyspareunia in female secondary to atrophic vaginal changes. Family history of breast cancer in mother History of COVID-19 (~11/2021) History of tobacco use Quit 06/2022, 20 packyr hx. Pelvic mass (~03/2016) initially diagnosed as R ovarian mass. at time of laparotomy large degenerating cervical myoma. Nl uterus and adnexa. Surgical History History of anterior colporrhaphy (08/2021) S/P SHARLA-BSO (2015) Finding of extensive collection of cervical myomas Status post breast biopsy (~2013) left Status post rotator cuff repair right Family History Mother , 78 Breast cancer Heart disease Stroke Lung cancer Cancer of spine Father , 49 Cancer Maternal Grandfather , 68 Alcohol abuse Heart disease Paternal Grandfather , 80 Alcohol abuse Heart disease Maternal Grandmother , 30 Diabetes Alcohol abuse Paternal Grandmother , 98 Heart disease Sister Depression Sister Alcohol abuse Depression Substance abuse Brother No problems noted. Son Depression Daughter No problems noted. Social History Smoking/Tobacco Use Status: Current-Occasional Tobacco Type: cigarettes Years smoked: 50 Tobacco: How many years used: 45 Quit status: has quit before Second Hand Exposure: Yes Counseling given: provider counseling Smoking risk assessment performed?: Yes Alcohol Intake: never Drug use: Never Substance use type: does not use Caregiver/Support person: No Household members: spouse, adopted family and other Details: she and her adopted 2 children in their 50s Housing: house Number of Children: 6 Education Level: high school Do you need help understanding health information?: Never 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 Pets and animals: Yes Pets and animals: dog(s), horse(s) and other Details: chickens Sexually active: No Do you think of yourself as: straight/heterosexual Current gender identity: female What is your relationship status?: How often do you talk on the phone with friends or family?: three or more times per week How often do you get together with friends or relatives?: never How often do you attend scientology or catholic services?: 1-3 times per year Do you belong to any clubs or organized social groups?: no Panel score (0-1 are the most socially isolated patients): 2 Duration: < 15 minutes/day Frequency: daily Chaparrita/Amish: Judaism Special chaparrita needs: No Seatbelt use: always Helmet use: Yes Helmet use: sometimes Drive intox or ride w/intox jitney driver: No Do you feel safe at home: Yes Do you feel safe in your relationship?: Yes Additional Social history: Daughter Gloria with ADHD, adopted. Enjoys gardening, working. History History 2 Para Hx # Term Pregnancies 1 Multiple births Hx # Pregnancies 1 Ectopic pregnancies AB induced Hx Number of Living Children AB spontaneous Exam Narrative Exam Narrative: Physical Examination General: alert, awake, cooperative, resting comfortably, no acute distress HEENT: normocephalic, atraumatic; PERRL, EOM intact, conjunctiva normal; no nasal discharge; moist mucous membranes, oral and pharyngeal mucosa normal, tolerating secretions Neck: supple, trachea midline; full ROM Chest: normal to inspection Respiratory: normal respiratory effort, speaking in full sentences, clear to auscultation, no wheezing, rales or rhonchi Cardiac: regular rate, regular rhythm, S1S2 intact, no murmurs rubs or gallops GI: abdomen soft, non-tender, non-distended; no palpable mass or hepatosplenomegaly Skin: no lesions, rashes or trauma appreciated Neuro: AAOx3, normal speech, moving all extremities Psych: Appropriate mood and affect Course Vital Signs Vital signs: Vital Signs Temperature 37.0 C 02/02/23 14:13 Pulse 79 02/02/23 14:13 Respiratory Rate 02/02/23 14:13 Blood Pressure 144/86 H 02/02/23 14:13 Pulse Oximetry 99 02/02/23 14:13 Temperature 37.0 C 02/02/23 14:13 Pulse 79 02/02/23 14:13 Respiratory Rate 20 02/02/23 14:13 Blood Pressure 144/86 H 02/02/23 14:13 Blood Pressure Position Sitting 02/02/23 14:13 Pulse Oximetry 99 02/02/23 14:13 Oxygen Delivery Method Room Air 02/02/23 14:13 Oxygen Flow Rate 0 02/02/23 14:13
[2023-02-02] MEDS: Normal Saline 1,000 ML 1000 ML IV (15:51)
[2023-02-02] MEDS: Ondansetron 4 MG/2 ML VIAL IVP (15:51)
[2023-02-02 15:56] LABS: Abs Immature Grans 0.04 10^3/uL (0.0-0.06); Absolute Basophil Count 0.04 10^3/uL (0.0-0.2); Absolute Eosinophil Count 0.26 10^3/uL (0.0-0.7); Absolute Lymphocyte Count 2.22 10^3/uL (1.2-3.4); Absolute Monocyte Count 0.71 10^3/uL (0.1-0.8); Absolute Neutrophil Count 7.47 10^3/uL (1.2-6.7); Basophils % 0.4; Eosinophils % 2.4; HCT 47.2 % (36.0-46.0); HGB 16.2 g/dL (11.2-15.7); Immature Grans % 0.4; Lymphocytes % 20.7; MCH 30.4 pg (27.0-33.0); MCHC 34.3 % (32.0-36.0); MCV 89 fL (80-95); MPV 9.9 fL (8.0-11.0); Monocytes % 6.6; Neutrophils % 69.5; Platelet Count 216 10^3/uL (130-400); RBC 5.33 10^6/uL (3.93-5.22); RDW 12.9 % (11.7-14.6); RDW-SD 42.1 fL; WBC 10.74 10^3/uL (4.4-10.8)
[2023-02-02 16:09] LABS: ALT 19 U/L (14-59); AST 17 U/L (15-37); Alkaline Phosphatase 76 U/L (46-116); Anion Gap 8.8 mmol/L (3-11); BUN 9 mg/dL (7-18); Bilirubin, Total 0.6 mg/dL (0.2-1.0); CO2 28.2 mmol/L (21.0-32.0); CREATININE 0.8 mg/dL (0.55-1.02); Calcium 9.5 mg/dL (8.5-10.1); Chloride 105 mmol/L (98-107); Estimated GFR 82.74 (mL/min/1.73m2); Glucose 90 mg/dL (74-106); Sodium 142 mmol/L (136-145); Total Protein 7.5 g/dL (6.4-8.2)
[2023-02-02] MEDS: Omnipaque 350 MG/ML 100 ML BTL IJ (16:51)
[2023-02-02] MEDS: Normal Saline - Diluent 50 ML VIAL IJ (16:53)
[2023-02-02 16:54] LABS: Bilirubin Negative (Negative); Blood Negative (Negative); Clarity Clear (Clear); Glucose Negative (Negative); Ketones 15 mg/dL (Negative); Leukocyte Esterase Negative (Negative); Nitrite Negative (Negative); Specific Gravity 1.015 (1.005-1.025); Urobilinogen 0.2 mg/dL (Up to 0.2); pH 5.5 (5-8)
[2023-02-02] MEDS: Amoxicillin 875/Clav. 125 TAB PO (18:16)
[2023-02-02] MEDS: Ketorolac 15 MG/ML VIAL IVP (18:23)
== END 2023-02-02 18:23 | disposition home or self-care (01) ==
PROVIDERS: Emergency Provider Emergency Medicine; PCP Nurse Practitioner Family
DX: K57.92 Diverticulitis of intestine, part unspecified, without perforation or abscess without bleeding (principal)
CPT/HCPCS: 36415; 80053; 96361; 96374; 96375; 99285; 74177; 81003; 85025; 99284; J1885; J2405; J3490

== ENCOUNTER 2023-02-24 09:30 | Outpatient (REF) | payer OTHER, SELFPAY ==
[2023-02-24 12:13] LABS: Abs Immature Grans 0.03 10^3/uL (0.0-0.06); Absolute Lymphocyte Count 2.03 10^3/uL (1.2-3.4); Absolute Monocyte Count 0.62 10^3/uL (0.1-0.8); Absolute Neutrophil Count 4.26 10^3/uL (1.2-6.7); Basophils % 1.1; Eosinophils % 23.8; HCT 43.4 % (36.0-46.0); HGB 14.9 g/dL (11.2-15.7); Immature Grans % 0.3; MCH 30.2 pg (27.0-33.0); MCHC 34.3 % (32.0-36.0); MCV 88 fL (80-95); MPV 11.3 fL (8.0-11.0); Monocytes % 6.7; Neutrophils % 46.1; Platelet Count 226 10^3/uL (130-400); RBC 4.93 10^6/uL (3.93-5.22); RDW 12.7 % (11.7-14.6); WBC 9.24 10^3/uL (4.4-10.8)
[2023-02-24 12:28] LABS: Anion Gap 9.5 mmol/L (3-11); BUN 10 mg/dL (7-18); CO2 25.5 mmol/L (21.0-32.0); CREATININE 0.7 mg/dL (0.55-1.02); Calcium 9.2 mg/dL (8.5-10.1); Chloride 109 mmol/L (98-107); Estimated GFR 97.12 (mL/min/1.73m2); Glucose 93 mg/dL (74-106); Potassium 4.5 mmol/L (3.5-5.1); Sodium 144 mmol/L (136-145)
[2023-02-24 13:20] LABS: Diff Comment Diff Reviewed; RBC Morphology Normal
== END 2023-02-24 09:31 | disposition home or self-care (01) ==
LOC: LBN 09:30
PROVIDERS: PCP Nurse Practitioner Family; Visit Provider Nurse Practitioner Family
DX: R53.83 Other fatigue (principal); I10 Essential (primary) hypertension
CPT/HCPCS: 80048; 85025

== ENCOUNTER 2024-10-04 09:41 | Outpatient (CLI) | payer SELFPAY ==
[2024-10-04 13:36] LABS: Anion Gap 8.7 mmol/L (3-11); BUN 9 mg/dL (7-18); CO2 29.3 mmol/L (21.0-32.0); CREATININE 0.8 mg/dL (0.55-1.02); Calcium 9.7 mg/dL (8.5-10.1); Chloride 105 mmol/L (98-107); Estimated GFR 82.23 (mL/min/1.73m2); Glucose 105 mg/dL (74-106); Potassium 4.1 mmol/L (3.5-5.1); Sodium 143 mmol/L (136-145)
== END 2024-10-04 09:42 | disposition home or self-care (01) ==
PROVIDERS: PCP Nurse Practitioner Family; Visit Provider Nurse Practitioner Family
DX: Z01.30 Encounter for examination of blood pressure without abnormal findings (principal)
CPT/HCPCS: 36415; 80048